=== PATIENT | female | born 2000 | race Caucasian/White ===

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

== ENCOUNTER 2024-01-09 09:57 | Emergency (ER) | payer MEDICAID, OTHER ==
[~2024-01-09] VITALS: Ht 167.6 cm; Wt 61.0 kg
[~2024-01-09 09:57] MED LIST: BO1 TP; IBUP-2029 MT
[2024-01-09 10:04] VITALS: O2SAT 99
[2024-01-09 11:30] LABS: HCG SCREEN NEGATIVE
[2024-01-09] MEDS: KETOROLAC 30MG/ML VIAL IM ONE (11:33)
[2024-01-09] MEDS ORDERED: IBUP-2028 MT (12:46)
[2024-01-09 13:00] VITALS: BP 115/78; PULSE 85; RESP 17; TEMP 98
== END 2024-01-09 14:11 | disposition home or self-care (01) ==
LOC: ER 10:09
DX: M54.50 Low back pain, unspecified (principal)
CPT/HCPCS: 81025; 84703; 72100; 96372; 99284; J1885; Z7610 ×2